=== PATIENT | male | born 1965 | race Caucasian/White ===

== ENCOUNTER 2017-02-19 21:15 | Inpatient (IN) | payer OTHER ==
--- NOTE | ~2017-02-19 | PN ---
Unit #: [id number] #: [id number] Patient: MATTHIAS VALENZUELA [id number] [facility] [address] [place] [address] [id number] I MR#: [id number] NAME: MATTHIAS VALENZUELA ROOM: P186 Age: 51 Sex: M Admission Date: 02/19/2017 : 1965 Attending Physician: Donnie Ochoa M.D. Admitting Physician: Donnie Ochoa M.D. Primary Care Physician: Primary Care Physician Sheila MCCARTHY PROGRESS NOTES DATE 02/22/2017 DISCUSSION Matthias continues to have active detox symptoms today. He is somewhat isolated from peers and staff and rarely comes out for groups and activities. He is alert and fully oriented with no psychosis. ASSESSMENT Alcohol dependence. PLAN Continue current treatment plan and medication management. Dictated by... Donnie Ochoa M.D. KARLA/jackelynh TD: 02/23/2017 20:00 JOB #: [id number] [facility] PROGRESS NOTES Page 1 of 1 X Donnie Ochoa MD PROGRESS NOTE
--- NOTE | ~2017-02-19 | PN ---
Unit #: [id number] #: [id number] Patient: MATTHIAS VALENZUELA [id number] [facility] [address] [place] [address] [id number] I MR#: [id number] NAME: MATTHIAS VALENZUELA. ROOM: 86 Age: 51 Sex: M Admission Date: 02/19/2017 : 1965 Attending Physician: Donnie Ochoa M.D. Admitting Physician: Donnie Ochoa M.D. Primary Care Physician: Primary Care Physician Sheila CARRASQUILLO NOTES DATE 02/21/2017 DISCUSSION Mr. Valenzuela is his having active detox symptoms today. He is irritable in mood with a congruent affect. He is alert and fully oriented with no active psychosis. He does continue to report suicidal ideation. ASSESSMENT 1. Major depression. 2. Alcohol dependence. PLAN Restart citalopram and buspirone and obtain medical consultation due to the patient's history of hypothyroidism. Dictated by... Donnie Ochoa M.D. [facility]/shahbaz TD: 03/01/2017 22:22 JOB #: [id number] [facility] PROGRESS NOTES Page 1 of 1 X Donnie Ochoa MD PROGRESS NOTE
--- NOTE | ~2017-02-19 | PA ---
Unit #: [id number] #: [id number] Patient: MATTHIAS VALENZUELA [id number] [place] [address] [id number] I MR#: [id number] NAME: MATTHIAS VALENZUELA. ROOM: P186 Age: 51 Sex: M Admission Date: 02/19/2017 : 1965 Date of Assessment: 02/20/2017 Attending Physician: Donnie Ochoa M.D. Admitting Physician: Donnie Ochoa M.D. Primary Care Physician: Primary Care Physician No PSYCHIATRIC ASSESSMENT DATE OF SERVICE 02/20/2017. INFORMANTS The patient, reliable; [facility], reliable; [facility], reliable. CHIEF COMPLAINT Alcohol abuse and depression. HISTORY OF PRESENT ILLNESS Mr. Valenzuela is a 51-year-old man, who was recently released from nursing home and says he has been "drunk ever since I got out." He went to the [facility] in [place], [place], but "turned around and walked out" and said that he felt suicidal. He was taking antidepressant medications in nursing home, but since he left. He was unable to contract for safety and was admitted for stabilization and detox. PAST PSYCHIATRIC HISTORY The patient was treated in nursing home with Lexapro and buspirone. He was an inpatient in the in his home state of [place]. FAMILY PSYCHIATRIC HISTORY The patient denies a history of mental illness in his family. The patient's father was an alcoholic. SOCIAL HISTORY The patient is single and recently released from an extensive incarceration in the state [facility]. He is currently homeless and is estranged from his family. He has no local support. PAST MEDICAL HISTORY Hypothyroidism, hypertension, and history of hepatitis C. MEDICATIONS Synthroid 200 mcg daily. ALLERGIES No known medication allergies. SUBSTANCE USE HISTORY As noted the patient has been drinking steadily for the past month. MENTAL STATUS EXAMINATION Unit #: [id number] #: [id number] Patient: MATTHIAS VALENZUELA The patient presented as a neatly dressed and groomed man, who appeared his stated age. He was cooperative with the examination. He stood 5 feet 10 inches tall, weighing 220 pounds. Vital signs; temperature 98.6, pulse 64, respirations 15, blood pressure 136/90. His speech was spontaneous and easily understood. His musculoskeletal examination was calm. His mood was depressed with a congruent affect. He is alert and fully oriented. Memory and concentration are fair. Thought processes were goal directed with no active psychosis. He reported suicidal ideation with a plan to overdose and could not contract for safety. Insight and judgment, fair. Fund of knowledge and abstraction, fair. ASSETS AND LIABILITIES The patient is voluntary for treatment. Liabilities include lack of psychosocial support and lack of knowledge of local facilities. ADMITTING DIAGNOSES AXIS I: Major depressive disorder, F33.2; alcohol dependence, F10.230. AXIS II: Antisocial traits. AXIS III: Hypothyroidism, hypertension. AXIS IV: AXIS V: PSYCHIATRIC PLAN The patient was admitted and placed on suicide precautions and the alcohol detox protocol. Physical examination and laboratory studies will be ordered and reviewed. TREATMENT GOALS Establishment of sobriety, resolution of SI, improvement in insight, improvement in coping skills. DISCHARGE PLANNING Follow up with [facility] mental health. ESTIMATED LENGTH OF STAY 5 days. Dictated by... Donnie Ochoa M.D. KARLA/sunshine TD: 02/28/2017 03:25 JOB #: [id number] PSYCHIATRIC ASSESSMENT Page 1 of 1 X Donnie Ochoa MD PSYCHIATRIC ASSESSMENT
--- NOTE | ~2017-02-19 | HP ---
Unit #: [id number] #: [id number] Patient: MATTHIAS VALENZUELA [id number] [facility] [address] [place] [address] [id number] I MR#: [id number] NAME: MATTHIAS VALENZUELA. ROOM: P186 Age: 51 Sex: M Admission Date: 02/19/2017 : 1965 Attending Physician: Donnie Ochoa M.D. Admitting Physician: Donnie Ochoa M.D. Primary Care Physician: Primary Care Physician No HISTORY AND PHYSICAL HISTORY OF PRESENT ILLNESS Matthias is a 51 year old admitted to [facility] because of his abuse of alcohol. He is detoxing. He tells me that he is from [place] and he has been in [place] for two days. PAST MEDICAL HISTORY 1. Long history of alcohol abuse. 2. Obesity. 3. Hypothyroidism. He is noncompliant with his medications. PAST SURGICAL HISTORY Nothing reported. ALLERGIES No known drug allergies. SOCIAL HISTORY He does not smoke. Drinks a liter of vodka on a daily basis and denies illicit drug use. FAMILY HISTORY Medically noncontributory. REVIEW OF SYSTEMS CONSTITUTIONAL: No fever or chills. HEENT: Denies any sore throat, ear pain or runny nose. CARDIOVASCULAR: Denies chest pain, irregular heart rhythm or palpitations. CHEST: Denies shortness of breath or cough. No hemoptysis. GASTROINTESTINAL: Denies nausea, vomiting, diarrhea or chronic constipation. ENDOCRINE: Denies history of increased thirst or urination. No recent significant weight loss or gain. GENITOURINARY: Denies dysuria, frequency, or hematuria. SKIN: Denies any rashes. HEMATOLOGIC: Denies history of increased bleeding or bruising. MUSCULOSKELETAL: Denies any hot, swollen joints. No generalized muscle pain. NEUROLOGIC: Denies problems with vision or speech. No frequent, severe headaches. No numbness, tingling or weakness in any extremities. Denies loss of bladder or bowel control. CURRENT MEDICATIONS Unit #: [id number] #: [id number] Patient: MATTHIAS VALENZUELA Detox protocol PHYSICAL EXAMINATION GENERAL: Alert, well-nourished, in no apparent distress. VITAL SIGNS: Blood pressure 138/88, heart rate 82, respirations 16, temperature 98.6. WEIGHT: 220 pounds. HEIGHT: 5'10". SKIN: Warm and dry without rash or lesion. HEENT: Normocephalic. TMs not viewed. Oral and nasal passages clear. Conjunctivae clear. Pupils equal, round and reactive to light and accommodation. Extraocular movements intact. NECK: Supple without lymphadenopathy or thyromegaly. HEART: Regular rate and rhythm without murmur. LUNGS: Clear. ABDOMEN: Soft, nontender. : Not done. EXTREMITIES: No evidence of cyanosis, clubbing or edema. Moves all extremities without focal deficit. NEUROLOGICAL: Grossly within normal limits. Cranial Nerves: II: Visual borrero are intact. III, IV AND : Extraocular movements are intact. Pupils are equal, round and reactive to light. V: Facial sensation is grossly normal. VII: Facial movements and expression are normal. VIII: Auditory acuity grossly intact. IX, X: Uvula is midline. Phonation is normal. XI: Patient shrugs shoulders and turns head normally. XII: Tongue protrudes in the midline. Sensory and Motor Function: Sensory and motor sensation is grossly normal. Motor: moves all extremities well. Coordination: Gait is normal. Deep Tendon Reflexes: Intact. IMPRESSION Psychiatric admission RECOMMENDATIONS PSYCHIATRIC: Per psychiatrist. MEDICAL: I see no contraindications to participating in facility's activities. MEDICAL PROGNOSIS Good. MEDICAL CONDITION Stable. Dictated by... Anjali MonacoAVictoria-Mali. for Gamal Luis/percy TD: 02/20/2017 22:44 JOB #: [id number] Unit #: [id number] #: [id number] Patient: MATTHIAS VALENZUELA HISTORY AND PHYSICAL Page 1 of 1 X Cathy Multani HISTORY AND PHYSICAL
--- NOTE | ~2017-02-19 | PN ---
Unit #: [id number] #: [id number] Patient: MATTHIAS VALENZUELA [id number] [facility] [address] [place] [address] [id number] I MR#: [id number] NAME: MATTHIAS VLAENZUELA. ROOM: P186 Age: 51 Sex: M Admission Date: 02/19/2017 : 1965 Attending Physician: Donnie Ochoa M.D. Admitting Physician: Donnie Ochoa M.D. Primary Care Physician: Primary Care Physician Sheila CARRASQUILLO NOTES DATE OF SERVICE: 02/25/2017 DISCUSSION Mr. Valenzuela continues to have minimal withdrawal symptoms today, but he is very depressed. We discussed his situation in some detail and he is beginning to feel better about his discharge. He is alert and fully oriented. Memory and concentration are fair to good. Thought processes are goal directed and nonpsychotic. His blood pressure remains elevated and we are going to start him on lisinopril today. Medical consultation has decided not to restart him on his Synthroid at this point. Please see their note for explanation. ASSESSMENT Major depression and alcohol dependence. PLAN Start lisinopril 5 mg daily and monitor for response. The patient should discharge in the near future. Dictated by... Gamal KovacsH/sunshine TD: 02/28/2017 02:25 JOB #: [id number] [facility] CARRASQUILLO NOTES Page 1 of 1 X Donnie Ochoa MD X PROGRESS NOTE
--- NOTE | ~2017-02-19 | PN ---
Unit #: [id number] #: [id number] Patient: MATTHIAS VALENZUELA [id number] [facility] [address] [place] [address] [id number] I MR#: [id number] NAME: MATTHIAS VALENZUELA ROOM: P186 Age: 51 Sex: M Admission Date: 02/19/2017 : 1965 Attending Physician: Donnie Ochoa M.D. Admitting Physician: Donnie Ochoa M.D. Primary Care Physician: Sheila Primary Care Physician FABIO PROGRESS NOTES DATE 02/24/2017. DISCUSSION Matthias very apprehensive about leaving the hospital and we spent some time processing his fears and complications of this. He admits to being "institutionalized" by his long-term service in [facility] and we discussed the need for a closed and in structured environment after leaving the hospital. He agrees to seek this in conjunction with his pediatric social worker. He is alert and fully oriented with no evidence of psychosis, but ongoing depression. ASSESSMENT alcohol dependence and major depression. PLAN Continue current treatment plan and precautions. Dictated by... Donnie Ochoa M.D. [facility]/gz TD: 02/25/2017 13:16 JOB #: [id number] [facility] PROGRESS NOTES Page 1 of 1 X Donnie Ochoa MD PROGRESS NOTE
--- NOTE | ~2017-02-19 | CO ---
Unit #: [id number] #: [id number] Patient: MATTHIAS VALENZUELA [id number] [place] [address] [id number] I MR#: [id number] NAME: MATTHIAS VALENZUELA. ROOM: 86 Age: 51 Sex: M Admission Date: 02/19/2017 : 1965 Attending Physician: Donnie Ochoa M.D. Primary Care Physician: Primary Care Physician No Consultation Date: 02/25/2017 CONSULTATION REPORT SUBJECTIVE Matthias is a 51-year-old with history of high blood pressure and hypothyroidism. At time of admission, he admitted that he was noncompliant with medications. His pressures have remained high throughout this admission. We have been asked to assess and treat. OBJECTIVE GENERAL: Alert, well nourished, in no apparent distress. VITAL SIGNS: Blood pressure 150/90, 134/92, 170/88; heart rate 80, 76, 64. CARDIOVASCULAR: Rate and rhythm is regular. CHEST: Lungs clear. ABDOMEN: Obese, soft, nontender. EXTREMITIES: No edema. NECK: Supple without lymphadenopathy or thyromegaly. DIAGNOSTIC STUDIES LABORATORY RESULTS: Admission labs; TSH 12.94, free T4 of 0.53. ASSESSMENT 1. Hypothyroidism. 2. High blood pressure, not controlled. PLAN 1. Norvasc 5 mg one p.o. daily. 2. On 02/21/2017, the patient told me that he did not want to restart his Synthroid. He has since reconsidered. His home dose was 0.2 mg p.o. daily. We will restart him on 0.1 mg daily x1 month and then increase to 0.2 mg p.o. daily. He knows he needs to follow up with PCP. Dictated by... Cathy Multani P.A.-C. for Gamal Luis/sunshine TD: 02/27/2017 03:48 JOB #: [id number] Unit #: [id number] #: [id number] Patient: MATTHIAS VALENZUELA CONSULTATION REPORT Page 1 of 1 X Cathy Multani CONSULTATION REPORT
--- NOTE | ~2017-02-19 | DS ---
Unit #: [id number] #: [id number] Patient: BILL VALENZUELA [id number] [place] [address] [id number] I MR#: [id number] NAME: BILL VALENZUELA. ROOM: P186 Age: 51 Sex: M Admission Date: 02/19/2017 : 1965 Discharge Date: 02/26/2017 Attending Physician: Donnie Ochoa M.D. Primary Care Physician: Primary Care Physician No DISCHARGE SUMMARY REASON FOR ADMISSION Bill is a 51-year-old man, from [place], who came to [place] after being released from skilled nursing. He states he has been drinking heavily for about a month and has been off his psychiatric and medical medications. He reported suicidal ideation and could not contract for safety outside of the hospital. He was readmitted for stabilization. DIAGNOSTIC STUDIES LABORATORY RESULTS: TSH was elevated at 12.94 with free T4 low at 0.53. RPR was nonreactive. HOSPITAL COURSE Bill was admitted and placed on suicide precautions and the alcohol detox protocol. Citalopram and buspirone were restarted, and the Medical consultation was obtained for his various medical issues. The patient stated he would not be compliant with his thyroid medications outside the hospital and he was therefore not restarted on this medication per our ada accommodation consultant. He tolerated his medications with no adverse side effects, and on the date of discharge, he was able to contract for safety, having made arrangements to follow up in the community. DISCHARGE DIAGNOSES AXIS I: Major depression, F33.2; alcohol dependence, F10.230. AXIS II: No diagnosis. AXIS III: Hypertension, hypothyroidism, history of hepatitis C. AXIS IV: AXIS V: DISCHARGE INSTRUCTIONS Follow up with [facility] and [facility]. DISCHARGE MEDICATIONS Lexapro 20 mg daily for depression, BuSpar 10 mg b.i.d. for anxiety, trazodone 50 mg at bedtime for insomnia, Norvasc 5 mg daily for hypertension, Synthroid 300 mcg daily for hypothyroidism. CONDITION AT DISCHARGE Improved. PROGNOSIS Fair to good. Unit #: [id number] #: [id number] Patient: BILL VALENZUELA DIET AND ACTIVITY Per primary care doctor. Dictated by... Donnie Ochoa M.D. [facility]/modl TD: 02/28/2017 02:03 JOB #: [id number] DISCHARGE SUMMARY Page 1 of 1 X Donnie Ochoa MD DISCHARGE SUMMARY
--- NOTE | ~2017-02-19 | CO ---
Unit #: [id number] #: [id number] Patient: MATTHIAS VALENZUELA [id number] [facility] [address] [place] [address] [id number] I MR#: [id number] NAME: MATTHIAS VALENZUELA. ROOM: P186 Age: 51 Sex: M Admission Date: 02/19/2017 : 1965 Attending Physician: Donnie Ochoa M.D. Consultation Date: 02/20/2017 CONSULTATION REPORT REVISED REPORT SUBJECTIVE Matthias is a 51-year-old with history of hypothyroidism. He tells me he is noncompliant with his medications for months if not years. He is from [place] and has been in the [place] area for 2 days. He expects to leave [place] at time of discharge with his next stop unknown at this time. At time of admission, he was found to have a TSH of 12.94 with a free T4 of 0.53. OBJECTIVE On exam, neck was supple without lymphadenopathy or thyromegaly. PLAN Now plan is to restart his Synthroid 0.2 mg daily. He tells me that I can give him a prescription and he is not going to have it filled. He is aware this is important that he takes his medication. 2 to 3 days of Synthroid will not change any outcome during his admission here. Dictated by... Cathy Multani P.A.-C. for Gamal Luis/sunshine TD: 02/22/2017 07:31 JOB #: [id number] CONSULTATION REPORT Page 1 of 1 X Cathy Multani CONSULTATION REPORT
[2017-02-20 12:49] LABS: THYROID STIMULATING HORMONE 12.94 uIU/ml (0.34-5.60)
[2017-02-20 12:56] LABS: FREE THYROXIN (T4) 0.53 ng/dL (0.58-1.64)
== END 2017-02-26 13:00 | disposition home or self-care (01) | DRG 885 ==
LOC: P1E 21:15
PROVIDERS: Psychiatry & Neurology Psychiatry
PROC: HZ2ZZZZ Detoxification Services for Substance Abuse Treatment (ICD-10-PCS; principal; 2017-02-19)
DX: F33.9 Major depressive disorder, recurrent, unspecified (principal); F10.230 Alcohol dependence with withdrawal, uncomplicated; E66.9 Obesity, unspecified; E03.9 Hypothyroidism, unspecified; F60.2 Antisocial personality disorder
CPT/HCPCS: 84439; 84443; 86592

== ENCOUNTER 2017-03-23 13:05 | Inpatient (IN) | payer OTHER ==
--- NOTE | ~2017-03-23 | PA ---
Unit #: [id number] #: [id number] Patient: MATTHIAS VALENZUELA [id number] [facility] [address] [place] [address] [id number] I MR#: [id number] NAME: MATTHIAS VALENZUELA. ROOM: [facility] Age: 51 Sex: M Admission Date: 03/23/2017 : 1965 Date of Assessment: 03/23/2017 Attending Physician: Donnie Ochoa M.D. Admitting Physician: Donnie Ochoa M.D. Primary Care Physician: Primary Care Physician No PSYCHIATRIC ASSESSMENT DATE OF SERVICE 03/24/2017. INFORMANTS The patient, reliable; [facility], reliable. CHIEF COMPLAINT "I've been drinking and I kept using heroin." HISTORY OF PRESENT ILLNESS Mr. Valenzuela is a 51-year-old man with a history of polysubstance dependence with the above chief complaint. He stated that he went to step on a curb and he fell due to his intoxicated state and a mild bruise is noted on his forehead. He was recently released from residential after a long stay. He was unable to contract for safety with no specific suicidal ideation, intent or plan and was admitted for stabilization. PAST PSYCHIATRIC HISTORY The patient has been at this facility recently and was also in residential and in psychiatric treatment in the [facility]. He has been taking Celexa and BuSpar but has been noncompliant. FAMILY PSYCHIATRIC HISTORY The patient's father was an alcoholic. SOCIAL HISTORY The patient is single and was incarcerated for 23 years in [place] for armed robbery. He is homeless and estranged from his family with minimal local support. PAST MEDICAL HISTORY Hypothyroidism, hypertension, hepatitis C. MEDICATIONS Synthroid. ALLERGIES No known medication allergies. SUBSTANCE USE HISTORY As noted, the patient has been drinking heavily and has also relapsed on the use of heroin. Unit #: [id number] #: [id number] Patient: MATTHIAS VALENZUELA MENTAL STATUS EXAMINATION The patient presented as a disheveled man who appeared older than his stated age. A hematoma was noted on his forehead. He stood 5 feet 9 inches tall, weighing 225 pounds. Vital signs; temperature 97.4, pulse 82, respirations 16, and blood pressure 133/80. His speech was soft, and he was difficult to awaken for examination. Musculoskeletal examination appeared calm. Mood was reported depressed with a flat affect, but he could not be awakened for full mental status examination. The mental status examination will be re-attempted when the patient is cooperative. ASSETS AND LIABILITIES The patient is in general good health and knows local resources. Liabilities include difficulty maintaining sobriety and lack of support. ADMITTING DIAGNOSES AXIS I: Alcohol dependence with withdrawal, uncomplicated, F10.230; major depressive disorder, F33.2. AXIS II: No diagnosis. AXIS III: Hypertension, hypothyroidism, history of hepatitis C. AXIS IV: AXIS V: PSYCHIATRIC PLAN The patient was admitted and placed on suicide precautions and the alcohol detox protocol. His home medications will be restarted once the recent doses and schedules are confirmed and he will enroll in dual diagnosis groups and activities. A physical examination and laboratory studies will be repeated. Treatment goals are resolution of SI, establishment of sobriety, improvement in insight, and improvement in coping skills. DISCHARGE PLANNING Follow up with [facility] and community health resources. ESTIMATED LENGTH OF STAY 5 days. Dictated by... Donnie Ochoa M.D. KARLA/sunshine TD: 03/24/2017 13:30 JOB #: [id number] PSYCHIATRIC ASSESSMENT Page 1 of 1 X Donnie Ochoa MD PSYCHIATRIC ASSESSMENT
--- NOTE | ~2017-03-23 | HP ---
Unit #: [id number] #: [id number] Patient: MATTHIAS VALENZUELA [id number] [place] [address] [id number] I MR#: [id number] NAME: MATTHIAS VALENZUELA ROOM: P214 Age: 51 Sex: M Admission Date: 03/23/2017 : 1965 Attending Physician: Donnie Ochoa M.D. Admitting Physician: Donnie Ochoa M.D. Primary Care Physician: Primary Care Physician No HISTORY AND PHYSICAL The patient is a 51-year-old male admitted to [address] [place] [address] on 03/23/2017 to detox from alcohol. The patient had a recent history and physical 02/20/2017 where a complete history and physical was done. This history and physical has been reviewed. No changes need to made. Dictated by... Mega Cadet/percy TD: 03/24/2017 20:58 JOB #: [id number] HISTORY AND PHYSICAL Page 1 of 1 X BRANDI MONSON APRN X HISTORY AND PHYSICAL
--- NOTE | ~2017-03-23 | PN ---
Unit #: [id number] #: [id number] Patient: MATTHIAS VALENZUELA [id number] [facility] [address] [place] [address] [id number] I MR#: [id number] NAME: MATTHIAS VALENZUELA ROOM: P214 Age: 51 Sex: M Admission Date: 03/23/2017 : 1965 Attending Physician: Donnie Ochoa M.D. Admitting Physician: Donnie Ochoa M.D. Primary Care Physician: Primary Care Physician Sheila MCCARTHY PROGRESS NOTES DATE 03/26/2017 DISCUSSION Matthias shows ongoing improvement today. His detox symptoms have decreased with minimal residual problems, and no evidence of delirium tremens, confusion, or disorientation. Mood is better with a little bit brighter range of affect. He is alert and fully oriented with no active psychosis. ASSESSMENT 1. Alcohol dependence. 2. Major depression. PLAN Continue current treatment plan, anticipating discharge tomorrow. Dictated by... Gamal KovacsH/bzsergio TD: 03/30/2017 09:24 JOB #: [id number] [facility] PROGRESS NOTES Page 1 of 1 X Donnie Ochoa MD PROGRESS NOTE
--- NOTE | ~2017-03-23 | PN ---
Unit #: [id number] #: [id number] Patient: MATTHIAS VALENZUELA [id number] [facility] [address] [place] [address] [id number] I MR#: [id number] NAME: MATTHIAS VALENZUELA ROOM: P214 Age: 51 Sex: M Admission Date: 03/23/2017 : 1965 Attending Physician: Donnie Ochoa M.D. Admitting Physician: Donnie Ochoa M.D. Primary Care Physician: Primary Care Physician Sheila MCCARTHY PROGRESS NOTES DATE 03/25/2017 DISCUSSION Ms. Valenzuela has active withdrawal symptoms today. He is sleeping a little better and has a good appetite. He is alert and fully oriented with no psychosis. He continues to endorse some suicidal ideation. ASSESSMENT 1. Alcohol dependence. 2. Major depression. PLAN Continue detox protocol and reintroduction of psychiatric medications. Dictated by... Donnie Ochoa M.D. [facility]/bzg TD: 03/26/2017 08:38 JOB #: [id number] [facility] PROGRESS NOTES Page 1 of 1 X Donnie Ochoa MD X PROGRESS NOTE
--- NOTE | ~2017-03-23 | DS ---
Unit #: [id number] #: [id number] Patient: MATTHIAS VALENZUELA [id number] [place] [address] [id number] MR#: [id number] NAME: MATTHIAS VALENZUELA. ROOM: [facility] Age: 51 Sex: M Admission Date: 03/23/2017 : 1965 Discharge Date: 03/27/2017 Attending Physician: Donnie Ochoa M.D. Primary Care Physician: Primary Care Physician No DISCHARGE SUMMARY REASON FOR ADMISSION Mr. Valenzuela is a 51-year-old man, referred from [facility] after he relapsed on alcohol use. He said that he fell intoxicated and got a bruise on his forehead. He was unable to contract for safety and was admitted for stabilization. DIAGNOSTIC STUDIES Laboratory data, TSH was elevated at 9.9. HOSPITAL COURSE The patient was admitted and placed on suicide precautions and the alcohol detox protocol. Home medications were restarted. He enrolled in psychotherapy groups and activities and was an active and appropriate participant. On the date of discharge, he had no further SI and was able to contract for safety having completed alcohol detox. DISCHARGE DIAGNOSES Strat[place] I Alcohol dependence, withdrawal, uncomplicated. Major depressive disorder. [place] II No diagnosis. [place] III Hypertension. Hypothyroidism. History of hepatitis C. Stratford IV Strat[place] V INSTRUCTIONS TO PATIENT Follow up with [facility] and [facility]. DISCHARGE MEDICATIONS 1. Lexapro 20 mg daily for depression 2. BuSpar 10 mg twice daily for anxiety 3. Trazodone 50 mg at bedtime for insomnia CONDITION AT DISCHARGE Improved. PROGNOSIS Ugot-lm-deyt. Unit #: [id number] #: [id number] Patient: MATTHIAS VALENZUELA DIET AND ACTIVITY Per primary care doctor. Dictated by... Gamal Kovacs/rainer TD: 03/27/2017 11:45 JOB #: [id number] DISCHARGE SUMMARY Page 1 of 1 X Donnie Ochoa MD X DISCHARGE SUMMARY
[2017-03-24 12:03] LABS: BASOPHIL% 0.3 % (0-2.5); EOSINOPHIL# 0.3 X10e3 (0-0.7); EOSINOPHIL% 3.6 % (0.0-7.0); HEMATOCRIT 42.9 % (38.0-50.0); HEMOGLOBIN 14.3 gm/dL (13.0-16.0); LYMPHOCYTE# 1.4 X10e3 (1.0-3.5); LYMPHOCYTE% 19.7 % (17.0-45.0); MEAN CELL VOLUME 92.8 FL (83-96); MEAN CORPUSCULAR HEMOGLOBIN 30.9 PG (28-34); MEAN CORPUSCULAR HGB CONC 33.3 g/dL (30-36); MEAN PLATELET VOLUME 8.8 FL (6.5-11.5); MONOCYTE# 0.6 X10e3 (0-1.0); MONOCYTE% 8.4 % (3.0-12.0); PLATELET COUNT 183 X10e3 (140-420); RED BLOOD COUNT 4.62 X10e (3.90-5.60); RED CELL DISTRIBUTION WIDTH 13.3 % (11.0-15.5); WHITE BLOOD COUNT 7.4 X10e3 (4.0-10.5)
[2017-03-24 12:06] LABS: DIFF IND NO
[2017-03-24 12:40] LABS: ALBUMIN SERUM 3.7 g/dL (3.5-5.0); BILIRUBIN,TOTAL 0.8 mg/dL (0.2-2.0); GLOM FILT RATE Estimated 87.4 mL/min (>60); POTASSIUM 4.2 mmol/L (3.5-5.1); PROTEIN TOTAL SERUM 6.2 g/dL (6.0-8.3)
[2017-03-24 12:52] LABS: THYROID STIMULATING HORMONE 9.09 uIU/ml (0.34-5.60)
[2017-03-24 13:00] LABS: FREE THYROXIN (T4) 0.68 ng/dL (0.58-1.64)
== END 2017-03-27 11:28 | disposition home or self-care (01) | DRG 897 ==
LOC: P2S 13:05
PROVIDERS: Psychiatry & Neurology Psychiatry
PROC: HZ2ZZZZ Detoxification Services for Substance Abuse Treatment (ICD-10-PCS; principal; 2017-03-23)
DX: F10.239 Alcohol dependence with withdrawal, unspecified (principal); F33.2 Major depressive disorder, recurrent severe without psychotic features; R45.851 Suicidal ideations; I10 Essential (primary) hypertension; E03.9 Hypothyroidism, unspecified; B19.20 Unspecified viral hepatitis C without hepatic coma; S00.83XA Contusion of other part of head, initial encounter; W19.XXXA Unspecified fall, initial encounter; F41.9 Anxiety disorder, unspecified; G47.00 Insomnia, unspecified
CPT/HCPCS: 80053; 84439; 84443; 85025